=== PATIENT | female | born 2000 | race Caucasian/White ===

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

== ENCOUNTER 2020-05-31 15:52 | Emergency (ER) | payer OTHER ==
[2020-05-31 15:58] VITALS: BP 107/67; PULSE 76; TEMP 98.1; BMI 41.3
--- NOTE | 2020-05-31 16:07 | PDOC ---
History of Present Illness - General Chief Complaint: Injury Stated Complaint: RIGHT KNEE PAIN Time Seen by Provider: 05/31/20 15:56 History Source: Patient Exam Limitations: No Limitations - History of Present Illness Initial Comments: Anil is a 19 yo obese F who presents to the [place] ER with right knee pain. She states yesterday when she was playing volleyball on the beach and doing gymnastics she dislocated her kneecap/patella. The patient reduced her kneecap by herself, but then it dislocated again around 3 times throughout the day. Her mother placed an yuliana wrap around her knee yesterday evening. The patient now presents to the ER today because she has persistent knee pain and is concerned that it is dislocated again. Patient is scared to bend her knee neto use she thinks it will dislocate. She is also scared to try and walk because she does not know if it is dislocated or if ti will dislocate if she walks. Denies fevers, chills, nausea, vomiting, other injuries aside from her knee. PCP: Dr. Ronquillo PSH: None reported Social Hx: Denies smoking, drinking, or other substance abuse Allergies: NKA, NKDA Past History - Medical History Allergies/Adverse Reactions: Allergies Allergy/AdvReac Type Severity Reaction Status Date / Time No Known Allergies Allergy Verified 05/31/20 15:53 Home Medications: Ambulatory Orders NK [No Known Home Medication] 01/19/15 COPD: No Other medical history: denies - Immunization History Td Vaccination: Yes Immunization Up to Date: Yes - Psycho-Social/Smoking History Smoking Status: No Smoking History: Never smoked Have you smoked in the past 12 months: No Number of Cigarettes Smoked Daily: 0 Information on smoking cessation initiated: No - Substance Abuse Hx (Audit-C & DAST Scrn) How often the patient has a drink containing alcohol: Monthly or less Score: In Men: 4 or > Positive; In Women: 3 or > Positive: 1 Screen Result (Pos requires Nsg. Audit-10AR): Negative In the last yr the pt used illegal drug/Rx for NonMed reason: No Score: Yes response is considered Positive: 0 Screen Result (Positive result requires Nsg. DAST-10): Negative Review of Systems - Review of Systems Able to Perform ROS?: Yes Comments:: CONSTITUTIONAL: Absent: fever, no chills, no fatigue EYES: Absent: visual changes ENT: Absent: ear pain, no sore throat CARDIOVASCULAR: Absent: chest pain, no palpitations RESPIRATORY: Absent: cough, no SOB GI: Absent: abdominal pain, no nausea, no vomiting, no constipation, no diarrhea GENITOURINARY: Absent: dysuria, no frequency, no hematuria MUSKULOSKELETAL: Present: Arthralgia Absent: back pain, no myalgia SKIN: Absent: rash NEURO: Absent: headache *Physical Exam - Vital Signs Last Vital Signs Temp Pulse Resp BP Pulse Ox 98.1 F 76 18 107/67 100 05/31/20 15:52 05/31/20 15:52 05/31/20 15:52 05/31/20 15:52 05/31/20 15:52 - Physical Exam RIGHT KNEE: The patella is in the correct position. There is no knee deformity. There is no tenderness to palpation around the knee. Full passive ROM. 2+ dp and PT pulses. Full sensation throughout. GENERAL: Well-appearing, well-nourished. No apparent distress. HEENT: Normocephalic, atraumatic. PERRL, EOM intact. CARDIOVASCULAR: Normal S1, S2. Regular rate and rhythm. PULMONARY: No evidence of respiratory distress. Lungs clear to auscultation bilaterally. No wheezing, rales or rhonchi. ABDOMEN: Soft, non-distended, non-tender. EXTREMITIES: Normal ROM in all four extremities. No gross deformities. SKIN: Warm, dry. No rash NEUROLOGICAL: No focal neurological deficits. ED Treatment Course - RADIOLOGY Radiology Studies Ordered: Category Date Time Status KNEE 2 POS-RIGHT [RAD] Stat Radiology 05/31/20 16:06 Ordered Medical Decision Making - Medical Decision Making Anil is a 19 yo obese F who presents to the [place] ER with right knee pain. She states yesterday when she was playing volleyball on the beach and doing gymnastics she dislocated her kneecap/patella. The patient reduced her kneecap by herself, but then it dislocated again around 3 times throughout the day. Her mother placed an yuliana wrap around her knee yesterday evening. The patient now presents to the ER today because she has persistent knee pain and is concerned that it is dislocated again. Patient is scared to bend her knee because she thinks it will dislocate. She is also scared to try and walk because she does not know if it is dislocated or if ti will dislocate if she walks. Denies fevers, chills, nausea, vomiting, other injuries aside from her knee. Vital Signs Temp Pulse Resp BP Pulse Ox 98.1 F 76 18 107/67 100 05/31/20 15:52 05/31/20 15:52 05/31/20 15:52 05/31/20 15:52 05/31/20 15:52 DDx IBNLT: Patellar fx, patellar dislocation, other knee injury Plan: Knee immobilizer, patellar/knee xr, DC with ortho fu - Knee immobilizer placed - Crutches given XR: Mild lateral patellar dislocation and small patellar fracture Ortho Consult: I spoke with Dr. Stinson who agrees with management plan to place patient in a knee immobilizer and he will see her in the office as a follow up patient on Sunday or Sunday. Re-assessment: Patient feeling better in knee immobilizer The patient appears clinically sober, is A&O x4, and appears to be capable and have capacity to make reasonable decisions. The patient states they are currently in the emergency department, knows who the president is, states the correct time, correct day, and correct month. The patient is ambulatory in ER and has walked around the nursing station multiple times with a straight gait, and is not ataxic. Tolerating PO well, ate a sandwich and drank juice. Denies having any SI or HI. Patient states will not be driving home. I discussed the physical exam findings, ancillary test results and final diagnoses with the patient. I answered all of the patient's questions. The patient was satisfied with the care received and felt comfortable with the discharge plan and treatment plan. The patient will call their primary care physician within 24 hours to arrange follow-up and will return to the Emergency Department with any new, persistent or worsening symptoms. Disposition: Home with ortho FU Please note, this clinical encounter is taking place during a federal and state health care emergency attributable to the novel [place] Virus pandemic. The [place] of the Department of Health and Human Services has declared, pursuant to the Public Health Service Act 319F-3 (42 U.S.C. 247d-6d), that a covered persons activities related to medical countermeasures against COVID-19 will be immune from liability under Federal and State law. Discharge - Discharge Information Problems reviewed: Yes Clinical Impression/Diagnosis: Patellar dislocation Qualifiers: Encounter type: initial encounter Laterality: right Qualified Code(s): S83.004A - Unspecified dislocation of right patella, initial encounter Knee pain Qualifiers: Chronicity: acute Laterality: right Qualified Code(s): M25.561 - Pain in right knee Patellar fracture Qualifiers: Encounter type: initial encounter Fracture type: closed Fracture morphology: unspecified fracture morphology Fracture alignment: nondisplaced Laterality: unspecified laterality Qualified Code(s): S82.009A - Unspecified fracture of unspecified patella, initial encounter for closed fracture Condition: Improved Disposition: HOME - Admission No - Follow up/Referral Referrals: Kendrick Stinson MD [Staff Physician] - - Patient Discharge Instructions Patient Printed Discharge Instructions: How to Use a Knee Immobilizer, DI for Patellar Dislocation, DI for Patella Fracture Additional Instructions: You came into the ER after you dislocated you kneecap yesterday. We believe you had a patellar dislocation. We placed your knee in a knee immobilizer. Pleased read the attached handout for further explanation. Take ibuprofen and tylenol as needed for pain control. Call up Dr. Stinson office to follow up later this week on Sunday or Sunday. You must return to the Emergency Department with any new complaints, if your symptoms persist and do not improve or if you develop any other new or worsening concerns. As discussed, please call to follow up with the orthopedist we are referring you to in 1-2 days to discuss what happened to you in the emergency room, and make sure you are being looked after and taken care of. Your emergency room visit is not complete without this follow up appointment. Thank you for coming to the [place] ER. We hope you feel better soon! Print Language: UZBEK - Post Discharge Activity
[2020-05-31] MEDS ORDERED: IBUPROFEN 600 MG TABLET (FP) PO ONE (16:23)
[2020-05-31] MEDS ORDERED: IBUPROFEN 400 MG TABLET (FP) PO ONE (16:58)
--- NOTE | 2020-05-31 17:05 | PDOC ---
Attending Attestation - Resident Resident Name: ZuleykamaryChris - ED Attending Attestation I have performed the following: I have examined & evaluated the patient, The case was reviewed & discussed with the resident, I agree w/resident's findings & plan, Exceptions are as noted - HPI HPI: 05/31/20 17:05 19 yo F with no pmhx here s/p knee injury. happened yesterday twice and today, pt was pulling something in the sand, doing gymnastics, and suddently twisted funny. felt her knee go to side. then her mom saw it, happened, was able to push the patella back to midline. has been unable to ambulate due to pain, was scared of it recurring . happened total of 3 times in 24 hours. no prior patella dislocation prior to yesterday - Physicial Exam PE: 05/31/20 16:58 awake alert lungs clear bilat heart rrr no mrg abd soft nt nd ext wwp. right knee wtih palp patella off center. some laxity. extensor intact. no eccymosis. no effusion. ankle, / hip nt from. n/v intact distally. - Medical Decision Making 05/31/20 17:00 19 yo F with patella dislcoation, seeems to be relocated but very lax. plan xray knee. immobilizer xray with lateral displacement of patella. knee immobilizer placed on patient. she is currently extended. 05/31/20 17:34 d/w dr stinson, will see pt in 48 hours. recommend knee immoblizer. noted small avulsion fx of lateral patella in addition to partial dislocation. crutches at bedside Discharge - Discharge Information Problems reviewed: Yes Clinical Impression/Diagnosis: Patella fracture Patellar dislocation Qualifiers: Encounter type: initial encounter Laterality: right Qualified Code(s): S83.004A - Unspecified dislocation of right patella, initial encounter Knee pain Qualifiers: Chronicity: acute Laterality: right Qualified Code(s): M25.561 - Pain in right knee Condition: Improved Disposition: HOME - Admission No - Follow up/Referral Referrals: Kendrick Stinson MD [Staff Physician] - - Patient Discharge Instructions Patient Printed Discharge Instructions: How to Use a Knee Immobilizer, DI for Patellar Dislocation Additional Instructions: You came into the ER after you dislocated you kneecap yesterday. We believe you had a patellar dislocation. We did an x-ray which showed no fractures. We placed your knee in a knee immobilizer. Pleased read the attached handout for further explanation. Take ibuprofen and tylenol as needed for pain control. You must return to the Emergency Department with any new complaints, if your symptoms persist and do not improve or if you develop any other new or worsening concerns. As discussed, please call to follow up with the orthopedist we are referring you to in 1-2 days to discuss what happened to you in the emergency room, and make sure you are being looked after and taken care of. Your emergency room visit is not complete without this follow up appointment. Thank you for coming to the [place] ER. We hope you feel better soon! Print Language: DIVEHI - Post Discharge Activity
== END 2020-05-31 19:00 | disposition home or self-care (01) ==
LOC: FER 15:52
DX: S83.004A Unspecified dislocation of right patella, initial encounter (principal); M25.561 Pain in right knee; S82.001A Unspecified fracture of right patella, initial encounter for closed fracture
CPT/HCPCS: 73560-TC-RT-FY; 99284-25